=== PATIENT | female | born 2000 | race African-American/Black ===

== ENCOUNTER 2024-04-30 07:56 | Emergency (ER) | payer SELFPAY | END 2024-04-30 09:56 | disposition home or self-care (01) | LOC: LL.ED 07:56 | DX: S92.352A Displaced fracture of fifth metatarsal bone, left foot, initial encounter for closed fracture (principal); F17.210 Nicotine dependence, cigarettes, uncomplicated; W19.XXXA Unspecified fall, initial encounter | CPT/HCPCS: 73600-LT; 73630-LT; 81025; 99283 ==